=== PATIENT | female | born 1990 | race Caucasian/White ===

== ENCOUNTER 2016-08-14 04:47 | Inpatient (IN) | payer OTHER ==
[~2016-08-14] VITALS: Ht 172.7 cm; Wt 93.6 kg
[2016-08-14] VITALS (10 sets, daily range): BP systolic 111–131; BP diastolic 61–77
[~2016-08-14 04:47] MED LIST: PRENATAL TABLE1 EAC3 PO
[2016-08-14] MEDS ORDERED: PERCOCET 5/31 TABLET PO (07:16)
[2016-08-14] MEDS ORDERED: MOTRIN800 MG PO (07:16)
[2016-08-15 02:23] VITALS: BP 102/59
[2016-08-15 06:38] LABS: EOSINOPHIL (%) 0.5 % (0-5); EOSINOPHIL COUNT 0.1 K/uL (0-0.3); HEMATOCRIT 36.8 % (36.0-46.0); IMMATURE GRANULOCYTE (%) 0.5 % (0.0-0.7); IMMATURE GRANULOCYTE COUNT 0.1 K/uL; INSTRUMENT ABS NEUTROPHIL CT 10.1 K/uL; LYMPHOCYTE COUNT 1.1 K/uL (1.0-2.8); MCH 30.3 PG (29.0-34.0); MCHC 33.2 G/DL (30.0-36.0); MCV 91.5 FL (83-99); MEAN PLAT.VOLUME 11.3 uM^3 (9.5-12.4); MONOCYTE (%) 7.3 % (3-12); MONOCYTE COUNT 0.9 K/uL (0-0.8); NEUTROPHIL (%) 82.6 % (45-76); NEUTROPHIL COUNT 10.1 K/uL (1.8-6.4); PLATELET COUNT 185 K/uL (156-360); RBC DIS.WIDTH-SD 43.6 % (39-53); RED BLOOD COUNT 4.02 M/uL (3.80-5.20); WHITE BLOOD COUNT 12.2 K/uL (4.1-10.2)
[2016-08-15 08:00] VITALS: BP 125/61
[2016-08-15 11:50] VITALS: BP 111/62
[2016-08-15 15:59] VITALS: BP 108/54
[2016-08-15 20:35] VITALS: BP 112/60
[2016-08-15 23:59] VITALS: BP 137/63
[2016-08-16 03:29] VITALS: BP 122/62
[2016-08-16 07:35] VITALS: BP 106/64
== END 2016-08-16 15:00 | disposition home or self-care (01) | DRG 765 ==
LOC: 2SOUTH → 2WEST 05:23 → 2SOUTH 11:24 → 2WEST 08-16 15:00
PROVIDERS: Obstetrics & Gynecology
PROC: 10D00Z1 Extraction of Products of Conception, Low, Open Approach (ICD-10-PCS; principal; 2016-08-14)
DX: O99.344 Other mental disorders complicating childbirth (principal); F33.9 Major depressive disorder, recurrent, unspecified; Z37.0 Single live birth; F41.9 Anxiety disorder, unspecified; Z3A.39 39 weeks gestation of pregnancy; O34.211 Maternal care for low transverse scar from previous cesarean delivery
CPT/HCPCS: 36415; 85025; 86850; 86900; 86901; J0690; J1100; J1885; J2274; J2405; J3010; J7120